=== PATIENT | male | born 1975 | race Caucasian/White ===

== ENCOUNTER 2024-02-08 12:41 | Outpatient (CLI) | payer OTHER, SELFPAY ==
--- NOTE | ~2024-02-08 | XR_ITS ---
EXAMINATION: XR knee RT 3V DATE: 02/08/2024 13:18 INDICATION: Right knee pain. TECHNIQUE: 3 views of right knee were obtained. COMPARISON: None. FINDINGS: Bone alignment is normal. No fracture. There is mild osteoarthritis of medial and patellofe moral compartments. No knee joint effusion. IMPRESSION: 1. Mild right knee osteoarthritis. Reviewed, dictated and finalized at location A.
--- NOTE | ~2024-02-08 | XR_ITS ---
EXAMINATION: XR lumbar spine 2-3V DATE: 02/08/2024 13:18 INDICATION: Back pain. TECHNIQUE: 3 views of lumbar spine were obtained. COMPARISON: None. FINDINGS: Bone alignment is normal. Vertebral body heights are normal. There are endplate osteophytes at multiple levels. There is severely decreased disc height at L5-S1. There is multilevel facet join t osteoarthritis, severe at multiple levels. IMPRESSION: 1. Severe lower lumbar spondylosis. Reviewed, dictated and finalized at location A.
== END 2024-02-08 12:42 ==
PROVIDERS: PCP Emergency Medicine; Visit Provider Emergency Medicine
DX: M25.562 Pain in left knee (principal); M47.896 Other spondylosis, lumbar region; M17.11 Unilateral primary osteoarthritis, right knee
CPT/HCPCS: 72100; 73562

== ENCOUNTER 2024-03-08 07:50 | Outpatient (CLI) | payer OTHER, SELFPAY ==
--- NOTE | ~2024-03-08 | MR_ITS ---
EXAMINATION: MR brain/brain stem wo/w con DATE: 03/08/2024 08:50 INDICATION: Tinnitus, bilateral. TECHNIQUE: Magnetic resonance imaging (MRI) of the brain, brainstem, and internal auditory canals was performed without and with 20 mL MultiHance intravenous contrast. COMPARISON: None. FINDINGS: There are scattered areas of nonspecific increased T2-weighted signal intensity in the cere bral white matter, which is within normal limits for the patient's age. There is no intracranial hemo rrhage, acute infarction, or abnormal intracranial mass lesion. The ventricles are normal in size. Th ere is mucosal thickening in the paranasal sinuses. The orbits are normal. The mastoid air cells are normal. The internal auditory canals are normal. IMPRESSION: 1. Normal aging brain. Reviewed, dictated and finalized at location A. IMPRESSION: 1. Normal aging brain.
== END 2024-03-08 07:51 ==
PROVIDERS: PCP Emergency Medicine; Visit Provider Emergency Medicine
DX: H93.13 Tinnitus, bilateral (principal)
CPT/HCPCS: 70553; A9577

== ENCOUNTER 2024-07-30 02:22 | Day surgery (SDC) | payer OTHER, SELFPAY ==
--- NOTE | 2024-05-31 10:18 | SUR.PREOP ---
Pt called in regards to the doctor not being available on Jul 01 and need to reschedule appointment. Message left on pt's voicemail asking for a return call.
[2024-07-18 10:03] VITALS: BMI 28.1
[2024-07-30 06:50] VITALS: BP 111/79; PULSE 79; RESP 18; TEMP 36.6; O2SAT 100; BMI 27.9
[2024-07-30] MEDS: LACTATED RINGERS 1,000 ML 150 ML IV CONT (07:13)
--- NOTE | 2024-07-30 07:45 | P.PNAN_ITS ---
Anes - Initial Pre Proc Eval Procedure: Operation Date: 07/30/24 08:00 Proposed Procedures p Screening Colonoscopy - Mio Galaviz MD Date/Time: 07/30/24 07:45 Surgeon: Mio Galaviz MD Pre Op Diagnosis: neoplasm screening Patient Data Age: 49 Gender: M Height: 1.93 m Weight: 104.1 kg Last Vital Signs Temp 36.6 C 07/30/24 06:50 Pulse 79 07/30/24 06:50 Resp 18 07/30/24 06:50 BP 111/79 07/30/24 06:50 Pulse Ox 100 07/30/24 06:50 O2 Del Method Room Air 07/30/24 06:50 Allergies Allergy/AdvReac Type Severity Reaction Status Date / Time No Known Allergies Allergy Verified 07/18/24 10:00 Home Medications Medication Instructions Recorded Confirmed Type melatonin 10 mg capsule 10 mg PO PRN PRN Sleep 12/30/19 07/30/24 History Celexa 20 mg PO DAILY 07/18/24 07/30/24 History bupropion HCl 150 mg 24 hr tablet, 150 mg PO DAILY 07/18/24 07/30/24 History extended release rosuvastatin 20 mg tablet 20 mg PO DAILY 07/18/24 07/30/24 History Patient hx anesthesia problems: none Family hx anesthesia problems: none Results Review: All pre-operative results and documents have been reviewed as part of the pre- operative evaluation. [facility] Family History Family History Father Diabetes mellitus Family history of cardiovascular disease Social History Social History Smoking status: Former smoker Tobacco type: cigarettes Smoking end date: 10/02/05 Alcohol intake: current Drinks per week: 2 Substance use type: does not use Living arrangements: alone Spiritual care concerns: No Anes - Eval Final PreProcedure Day of Procedure 07/30/24 07:45 Patient weight: overweight Heart: regular rate and rhythm Lungs: clear to auscultation Airway: Mallampati scale class 1 Neurological: alert and oriented Last oral intake: >/= 8 hours ASA classification: II Emergent: no Anesthetic plan: proceed Anesthesia type and monitoring: general GIVS Results Review: All pre-operative results and documents have been reviewed as part of the pre- operative evaluation. Informed Consent: The patient's anesthetic plan and its attendant risks and benefits were discussed with the patient/family/POA. Questions were solicited and answers provided to the satisfaction of the patient/family/POA.
--- NOTE | 2024-07-30 07:46 | PM.HPGS ---
History of Present Illness History of Present Illness Consent: Risks, benefits, and alternatives have been discussed and questions answered. Patient agrees to proceed with procedure. Chief complaint: neoplasm screening Narrative: Lennox Gaytan is a 49 year old male here for first screening colonoscopy Review of Systems Review of Systems: All systems reviewed & are unremarkable except as noted in HPI and below PMFSH Past Medical History Medical History (Updated 07/30/24 @ 07:48 by Mio Galaviz MD) Colon cancer screening Family History Family History Father Diabetes mellitus Family history of cardiovascular disease Social History Social History Smoking status: Former smoker Tobacco type: cigarettes Smoking end date: 10/02/05 Alcohol intake: current Drinks per week: 2 Substance use type: does not use Living arrangements: alone Spiritual care concerns: No Meds Home Medications and Allergies Home Medications Medication Instructions Recorded Confirmed Type melatonin 10 mg capsule 10 mg PO PRN PRN Sleep 12/30/19 07/30/24 History Celexa 20 mg PO DAILY 07/18/24 07/30/24 History bupropion HCl 150 mg 24 hr tablet, 150 mg PO DAILY 07/18/24 07/30/24 History extended release rosuvastatin 20 mg tablet 20 mg PO DAILY 07/18/24 07/30/24 History Allergies Allergy/AdvReac Type Severity Reaction Status Date / Time No Known Allergies Allergy Verified 07/18/24 10:00 Vital Signs Vital Signs - 24 hr 07/30/24 06:50 Temperature 97.9 F Pulse Rate 79 Respiratory Rate 18 Blood Pressure 111/79 Pulse Oximetry 100 Oxygen Delivery Room Air Exam Const: General: comfortable and no acute distress HENMT: Face/Nose/Sinus: Normal nares present Eyes: General: appearance normal, both eyes and all related structures Neck: Neck: no JVD Resp: Auscultation: clear to auscultation bilaterally Cardio: Rate: regular rate Rhythm: regular rhythm GI: Inspection: non-distended GI Palp: Yes Soft to palpation Skin: General skin exam: normal color Neuro: General: gait normal Speech: normal speech Extrem: General: normal to inspection Psych: Mental Status: mental status grossly normal Assessment and Plan Assessment and plan (1) Colon cancer screening: Code(s): Z12.11 - Encounter for screening for malignant neoplasm of colon Status: Acute Assessment and Plan: colonoscopy
[2024-07-30 08:00] VITALS: BP 100/69; PULSE 75; RESP 17; O2SAT 97
[2024-07-30 08:10] VITALS: BP 103/83; PULSE 80; RESP 19; O2SAT 99
[2024-07-30 08:20] VITALS: BP 125/83; PULSE 69; RESP 26; O2SAT 100
== END 2024-07-30 08:30 | disposition home or self-care (01) ==
PROVIDERS: PCP Emergency Medicine; Referring Provider Emergency Medicine; Visit Provider Internal Medicine Gastroenterology
PROC: 0DJD8ZZ Inspection of Lower Intestinal Tract, Via Natural or Artificial Opening Endoscopic (ICD-10-PCS; CPT 45378; principal; 2024-07-30 08:00)
DX: Z12.11 Encounter for screening for malignant neoplasm of colon (principal); Z87.891 Personal history of nicotine dependence; Z82.49 Family history of ischemic heart disease and other diseases of the circulatory system
CPT/HCPCS: 45378; J2704; J7120